=== PATIENT | female | born 1975 | race Caucasian/White ===

== ENCOUNTER 2025-06-04 08:25 | Outpatient (AMB) | payer OTHER, SELFPAY ==
--- NOTE | 2025-06-04 08:14 | A.OFFPC_ITS ---
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 She has a significant past medical history of hyperthyroidism Graves disease, constipation, joint pains, fatigue, insomnia and is currently menopausal. She denies any other previous past medical history Endo: [facility] for grave's disease. Currently managed on methimazole 5 mg daily. GI: Struggles with constipation and she followed with GI. States that she had a colonoscopy which was ?normal ?. Psych: Has been struggling with insomnia since she started with hot flashes and perimenopause. She does not sleep more than a couple hours a night and has frequent, interrupted sleep. She struggles falling asleep and staying asleep. MSK: States that her hips are very painful for her and she had x-rays which were read as normal. She states that it is because when she gets up she has feels very stiff and achy. She tells me she has had most labs drawn and ever ything comes back normal which is very frustrating for her. 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 Follow up with [facility] atm mechanic who tried her on a hormone replacement patch with a patch kept falling off. She tried taping it on but felt that this was too much. She felt a little bit better with the hormones in terms of her symptoms of menopause like hot flashes, mood changes but did not notice any real change in her weight or quality of sleep. She states that she has struggled with keeping the patch on her that it was hard to to assess full changes in her system. 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 1. Little interest or pleasure in doing things: nearly every day 2. Feeling down, depressed, or hopeless: nearly every day 3. Trouble falling or staying asleep, or sleeping too much: nearly every day 4. Feeling tired or having little energy: nearly every day 5. Poor appetite or overeating: nearly every day 6. Feeling bad about yourself - or that you are a failure or have let yourself or your family down: not at all 7. Trouble concentrating on things, such as reading the newspaper or watching television: not at all 8. Moving or speaking so slowly that other people could have noticed. Or the opposite - being so fidgety or restless that you have been moving around a lot more than usual: nearly every day 9. Thoughts that you would be better off or of hurting yourself in some way: not at all Total score: 18 Depression Screening Interpretation: Positive Depression Screening Follow-up: New Medication prescribed and Follow-up Visit Requested Depression Screening Done: Yes 45682 - PHQ-9 Billing: Yes Source: Developed by Drs. Franco Mclain, Aleja Gonzalez, Torin Roth and colleagues, with an educational alfonzo from [employer]. Thrive Questionnaire Date Thrive assessed: 06/02/25 I am a: Patient What is your living situation today?: I have a steady place to live Within the past 12 months, did the food you bought not last and you didn't have the money to get more?: Never true Within the past 12 months, did you worry whether your food would run out before you got money to buy more?: Never true Do you have trouble paying for medicines?: No Do you have trouble getting transportation to medical appointments?: No Do you have trouble paying your heating and electricity bill?: No Do you have trouble taking care of your child, family member or friend?: No Do you have trouble with day-to-day activities such as bathing, preparing meals, shopping, managing finances, etc.?: No Are you currently unemployed and looking for a job?: No Are you interested in more education?: I choose not to answer this question Please select the resources that you would like help with: None Currently or been in a relationship where the following occur: No concerns reported THRIVE Score: 0 AUDIT C Alcohol Use Questionnaire (AUDIT-C) 1. How often do you have a drink containing alcohol?: Monthly or less 2. How many drinks containing alcohol do you have on a typical day when you are drinking?: 1 or 2 3. How often do you have six or more drinks on one occasion?: Never Total Score: 1 MACKENZIE-7 AMB Questionnaire MACKENZIE-7 Date MACKENZIE - 7 assessed: 06/04/25 Feeling nervous, anxious, or on edge: 2 = More than half the days Not being able to stop or control worryin = More than half the days Worrying too much about different things: 2 = More than half the days Trouble relaxin = More than half the days Being so restless that it is hard to sit still: 2 = More than half the days Becoming easily annoyed or irritable: 2 = More than half the days Feeling afraid as if something awful might happen: 2 = More than half the days Total MACKENZIE-7 score (0-4 normal; 5-9 mild; 10-14 moderate; 15-21 severe): 14 Source: Developed by Drs. Franco Mclain, Aleja Gonzaelz, Torin Roth and colleagues, with an educational alfonzo from [employer]. MACKENZIE-7 Assessment Billing MACKENZIE-7 Assessment Tool: MACKENZIE-7 Assessment 77002 Physical exam (Primary Care) Vital Signs: Last Vital Signs Pulse 75 06/04/25 12:51 Resp 14 06/04/25 12:51 BP 112/80 06/04/25 12:51 Pulse Ox 96 06/04/25 12:51 Oxygen Delivery Method Room Air 06/04/25 12:51 BMI result Body Mass Index 29.0 Tobacco/Smoking Status: Tobacco use Status Tobacco use date assessed 06/04/25 06/04/25 08:18 Patient Tobacco Use Status Never used Tobacco 06/04/25 08:18 e-Cigarette/Vaping Use Never Used 06/04/25 08:18 PHQ-9: PHQ-9 Score PHQ-9: Total score 18 06/04/25 12:54 Depression Screening Interpretation: Positive Depression Screening Follow-up: New Medication prescribed and Follow-up Visit Requested Thrive Assessment: Date of Thrive Assessment Date Thrive assessed 06/02/25 06/04/25 08:18 Currently or been in a relationship where the following occur: No concerns reported Const Orientation/consciousness: patient oriented x3 HENMT Ears: hearing grossly normal bilaterally Neck Thyroid: Thyroid normal Lymphatic: no lymphadenopathy noted Resp Auscultation: clear to auscultation bilaterally Cardio Rate: regular rate Rhythm: regular rhythm Heart sounds: S1 normal heart sound present and S2 normal heart sound present GI Inspection: Yes normal to inspection Palpation (GI): Soft to palpation and Other GI palpation findings present (nontender, no cva tenderness) Auscultation: normoactive bowel sounds Rectal Exam - Female: deferred Skin General skin exam: no rashes or lesions noted Neuro General: patient oriented x3, gait normal and no focal motor deficits Coding Level of Care Code New Pt Level 4 (09254) Complex EM visit Add On G2211 Diagnoses Weight gain R63.5 Polyarthralgia M25.50 Fatigue R53.83 Insomnia G47.00 Additional Codes MACKENZIE-7 Assessment Billing - MACKENZIE-7 Assessment Tool: MACKENZIE-7 Assessment 22755 ([id number]) PHQ-9 - 95657 - PHQ-9 Billing: Yes ([id number]) Assessment & Plan Assessment & Plan (1) Weight gain: Code(s): R63.5 - Abnormal weight gain Category: Medical Plan: We did discuss starting Zepbound. She will let me know if she wants to try something like this We also reviewed diet and increase protein intake, reduced carbohydrate intake and I have labs. (2) Polyarthralgia: Code(s): M25.50 - Pain in unspecified joint Category: Medical Plan: Labs ordered today. We will follow up pending test results (3) Fatigue: Code(s): R53.83 - Other fatigue Category: Medical Plan: Possibly related to the insomnia (4) Insomnia: Code(s): G47.00 - Insomnia, unspecified Category: Medical Plan: I will start her on trazodone. Discussed risks and benefits and adverse effects of this medication. Plan Advised to contact her mammal control agent for HRT. She was also referred to atm mechanic Orders: Orders AGUSTIN Reflex Titer and Pattern Today G47.00 - Insomnia, unspecified, M25.50 - Pain in unspecified joint, R53.83 - Other fatigue, R63.5 - Abnormal weight gain Comprehensive [place]. Panel Fast Today G47.00 - Insomnia, unspecified, M25.50 - Pain in unspecified joint, R53.83 - Other fatigue, R63.5 - Abnormal weight gain Vitamin B12 and Folate Today G47.00 - Insomnia, unspecified, M25.50 - Pain in unspecified joint, R53.83 - Other fatigue, R63.5 - Abnormal weight gain Lipid Panel Today G47.00 - Insomnia, unspecified, M25.50 - Pain in unspecified joint, R53.83 - Other fatigue, R63.5 - Abnormal weight gain IRON PROFILE Today G47.00 - Insomnia, unspecified, M25.50 - Pain in unspecified joint, R53.83 - Other fatigue, R63.5 - Abnormal weight gain Erythrocyte Sedimentation Rate Today G47.00 - Insomnia, unspecified, M25.50 - Pain in unspecified joint, R53.83 - Other fatigue, R63.5 - Abnormal weight gain Magnesium Today G47.00 - Insomnia, unspecified, M25.50 - Pain in unspecified joint, R53.83 - Other fatigue, R63.5 - Abnormal weight gain Insulin Today G47.00 - Insomnia, unspecified, M25.50 - Pain in unspecified joint, R53.83 - Other fatigue, R63.5 - Abnormal weight gain Hemoglobin A1c Today G47.00 - Insomnia, unspecified, M25.50 - Pain in unspecified joint, R53.83 - Other fatigue, R63.5 - Abnormal weight gain Vitamin D 25-OH Total Today G47.00 - Insomnia, unspecified, M25.50 - Pain in unspecified joint, R53.83 - Other fatigue, R63.5 - Abnormal weight gain Complete Blood Count Auto Diff Today G47.00 - Insomnia, unspecified, M25.50 - Pain in unspecified joint, R53.83 - Other fatigue, R63.5 - Abnormal weight gain TSH reflex Free T4 Today G47.00 - Insomnia, unspecified, M25.50 - Pain in unspecified joint, R53.83 - Other fatigue, R63.5 - Abnormal weight gain Lyme IgG/IgM w/reflex to WB Today G47.00 - Insomnia, unspecified, M25.50 - Pain in unspecified joint, R53.83 - Other fatigue, R63.5 - Abnormal weight gain Ferritin Today G47.00 - Insomnia, unspecified, M25.50 - Pain in unspecified joint, R53.83 - Other fatigue, R63.5 - Abnormal weight gain Rheumatoid Factor Today G47.00 - Insomnia, unspecified, M25.50 - Pain in unspecified joint, R53.83 - Other fatigue, R63.5 - Abnormal weight gain Microalbumin, Random (w Creat) Today G47.00 - Insomnia, unspecified, M25.50 - Pain in unspecified joint, R53.83 - Other fatigue, R63.5 - Abnormal weight gain UA CC w/rflx Micro + Cult Today G47.00 - Insomnia, unspecified, M25.50 - Pain in unspecified joint, R53.83 - Other fatigue, R63.5 - Abnormal weight gain, Z13.220 - Encounter for screening for lipoid disorders Cortisol Random Today G47.00 - Insomnia, unspecified, M25.50 - Pain in unspecified joint, R53.83 - Other fatigue, R63.5 - Abnormal weight gain Referrals SCALE BALANCER Referral Z01.419 - Encounter for gynecological examination (general) (routine) without abnormal findings Medications: New trazodone 50 mg PO BEDTIME 30 tabs 4RF
--- OUTSIDE RECORDS SUMMARY | 2025-06-04 08:34 | XMS_ITS | Clinical Summary ---
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 4 Active methIMAzole (TAPAZOLE) 5 mg tabletIndication s:Thyrotoxicosis , unspecified without thyrotoxic crisis or storm TAKE 2 TABLETS BY MOUTH EVERY DAY 180 tablet 5 Active predniSONE (DELTASONE) 20 mg tablet Take 3 tabs for 3 days, take 2 tabs for 3 days, take 1 tab for 3 days 18 tablet 5 Active cyclobenzaprine (FLEXERIL) 10 mg tablet Take 0.5-1 tablets (5-10 mg total) by mouth 1 (one) time each day in the evening. Medication may cause drowisness. Do not operate machinery/drive while taking. 30 tablet 5 Active naproxen (NAPROSYN) 500 mg tablet Take 1 tablet (500 mg total) by mouth 2 (two) times a day if needed for mild pain (pain). 60 tablet 5 Active Active Problems Problem Noted Date Diagnosed Date Depression with anxiety 10/22/2024 Overview (10/22/2024): Last Assessment & Plan: I encouraged Arminda to continue to follow up to find a therapist by calling her insurance to see which are covered. I also encouraged her to discuss mood medications with her PCP to see if she can be treated. She agreed. PMS (premenstrual syndrome) 10/22/2024 Pain of left hip joint 03/07/2024 Overview (10/22/2024): Last Assessment & Plan: I explained that while joint pain can be exacerbated during menopausal transition, it will still require usual work up and treatment and thus she should see her PCP for this. She agreed. Weight gain 03/07/2024 Overview (10/22/2024): Last Assessment & Plan: I encouraged her to work on weight bearing exercise given that metabolism tends to decrease in menopause in part related to decreased muscle mass. This may also help with mood. Vasomotor symptoms due to menopause 07/31/2023 Overview (10/22/2024): Last Assessment & Plan: I counseled Arminda that since her vasomotor symptoms seem to be well controlled on the patch, and she no longer believes her mood symptoms to be related to her patch, it is reasonable to continue. She will try to apply it to her lower flank to see if it stays in place better. Chronic constipation 02/14/2022 Overview (10/22/2024): Last Assessment & Plan: This could very well be part of the cause of her bloating. I suggested adding a magnesium supplement, trying a stool softener OTC, and prn vegetable laxative. I encouraged her to increase water to 64 oz daily, regardless of her bloating as it will likely help in the end. I recommended referral to GI for this and her ongoing bloating to see if she has some food sensitivities. She was counseled to keep a food diary in the meantime to bring with her. Seizures (CMS/HCC V24, CMS/HCC V28) 06/26/2015 Overview (10/22/2024): Follows with neurology (Red) Last Assessment & Plan: I strongly recommended she follow up with Dr. Moon as recommended. Given her discovery of timing associated with menses, she may want to call to schedule the 48 hr EEG around the time she usually has sx to allow for best evaluation. She will do this. Can discuss possible methods of menstrual suppression once evaluation is complete if it seems related. Hyperthyroidism 02/19/2015 Encounters Date Type Department Care Team Description 03/18/2025 11:30 AM EDT - 03/18/2025 11:59 PM EDT Hospital Encounter [facility] [phone] Chronic pain of right hip Discharge Disposition: Home or Self Care 03/18/2025 11:25 AM EDT - 03/18/2025 11:59 PM EDT Hospital Encounter [facility] [address] [phone] Chronic pain of right hip; Right-sided low back pain with right-sided sciatica, unspecified chronicity Discharge Disposition: Home or Self Care 03/18/2025 10:30 AM EDT Office Visit Adult Medicine [address] [phone] Marcy Sanderson PA Right-sided low back pain with right-sided sciatica, unspecified chronicity (Primary Dx); Chronic pain of right hip 03/18/2025 Nurse Triage Adult Medicine [address] [phone] Michael Duval MD Back Pain; Hip Pain from Last 3 Months Surgical History Surgery Date Site/Laterality Comments HAND SURGERY PROCEDURE: HISTORICAL HAND SURGERY Medical History Medical History Date Comments PMS (premenstrual syndrome) DX:P MS (premenstrual syndrome) Depression with anxiety DX:Depre ssion with anxiety Hyperthyroidism 02/19/2015 DX:Hyperthyroidi sm Seizure disorder (CMS/HCC V24, CMS/HCC V28) 06/26 DX:Seizure disorder (HCC) Family History Medical History Relation Name Comments Other: Other Father Brain cancer ag e 46yo Other: other cancer Maternal Grandfather Colon cancer Maternal Grandmother Depression Mother Brain cancer Paternal Grandmother Depression Sister Breast cancer Neg Hx Ovarian cancer Neg Hx Pancreatic cancer Neg Hx Prostate cancer Neg Hx Uterine cancer Neg Hx Relation Name Status Comments Father Maternal Grandfather Maternal Grandmother Alive Mother Alive Paternal Grandfather Paternal Grandmother Sister Alive Social History Tobacco Use Types Packs/Day Years Used Date Smoking Tobacco: Former Smokeless Tobacco: Never Tobacco Cessation:Counseling Given: Not Answered Alcohol Use Standard Drinks/Week Comments Yes 0 (1 standard drink = 0.6 oz pur e alcohol) Comments No Sex and Gender Information Value Date Recorded Sex Assigned at Not on file Legal Sex Female 9:38 AM EDT Gender Identity Not on file Sexual Orientation Not on file Obstetrics History Last Filed Vital Signs Vital Sign Reading Time Taken Comments Blood Pressure 137/82 03/18/2025 10:48 AM EDT Pulse 76 03/18/2025 10:48 AM EDT Temperature 36.1 C (96.9 F) 03/18/2025 10:48 AM EDT Respiratory Rate 14 03/18/2025 10:48 AM EDT Oxygen Saturation 96% 03/18/2025 10:48 AM EDT Inhaled Oxygen Concentration - - Weight 79.8 kg (176 lb) 03/18/2025 10:48 AM EDT Height 167.6 cm (5' 6 ) 03/18/2025 10:48 AM EDT Body Mass Index 28.41 03/18/2025 10:48 AM EDT Plan of Treatment Upcoming Encounters Date Type Department Care Team (Late st Contact Info) Description 09/30/2025 9:00 AM EST Office Visit Adult Medicine [address] [phone] Michael Duval MD [address] [place] [phone] Health Maintenance Due Date Last Done Comments Breast Cancer Screening 1975 DTaP,Tdap,and Td Vaccines (1 - Tdap) 1994 Hepatitis B Vaccines (1 of 3 - 19+ 3-dose series) 1994 Social Influencers of Health Screening 05/06/2022 Cervical Cancer Screening: HPV 11/16/2022 11/16/2017 COVID-19 Vaccine (1 - 2023-2 5 season) 2024 Depression Screening 11/06/2024 03/07/2024 Influenza Vaccine (#1) 2025 Colorectal Cancer Screening: Colonoscopy 06/27/2028 06/27/2023 HIV Screening Completed 12/29/2017 Hepatitis C Screening Completed 08/13/2024 HIB Vaccines Aged Out No longer eligi ble based on patient's age to complete this topic HPV Vaccines Aged Out No longer eligi ble based on patient's age to complete this topic Hepatitis A Vaccines Aged Out No long er eligible based on patient's age to complete this topic IPV Vaccines Aged Out No longer eligi ble based on patient's age to complete this topic MMR Vaccines Aged Out No longer eligi ble based on patient's age to complete this topic Meningococcal ACWY Vaccine Aged Out N o longer eligible based on patient's age to complete this topic Meningococcal B Vaccine Aged Out No l onger eligible based on patient's age to complete this topic Pneumococcal Vaccine: Pediat rics (0 to 5 Years) and At-Risk Patients (6 to 49 Years) Aged Out No longer eligi ble based on patient's age to complete this topic RSV Immunization Patients Un bucky 20 months Aged Out No longer eligible b ased on patient's age to complete this topic Varicella Vaccines Aged Out No longer eligible based on patient's age to complete this topic Procedures Procedure Name Priority Date/Time Associated Diagnosis Comments AGUSTIN IFA WITH TITER AND PATTERN Routine 03/18/2025 12:15 PM EDT Chronic pain of right hip Right-sided low back pain with right-sided sciatica, unspecified chronicity BORRELIA BURGDORFERI ANTIBODY Routine 03/18/2025 12:15 PM EDT Chronic pain of right hip Right-sided low back pain with right-sided sciatica, unspecified chronicity URIC ACID Routine 03/18/2025 12:15 PM EDT Chronic pain of right hip Right-sided low back pain with right-sided sciatica, unspecified chronicity RHEUMATOID FACTOR Routine 03/18/2025 12: 15 PM EDT Chronic pain of right hip Right-sided low back pain with right-sided sciatica, unspecified chronicity XR HIP 2-3 VIEWS RIGHT Routine 03/18/2025 11:48 AM EDT Chronic pain of right hip XR LUMBAR SPINE 4+ VIEWS Routine 03/18/2025 11:47 AM EDT Chronic pain of right hip Right-sided low back pain with right-sided sciatica, unspecified chronicity HEPATITIS C SCREENING Routine 08/13/2024 DEPRESSION SCREENING Routine 03/07/2024 EXTERNAL COLONOSCOPY REPORT Routine 06/27/2023 4:05 PM EDT HM HIV SCREENING Routine 12/29/2017 HPV Routine 11/16/2017 from Last 3 Months or Most Recently Relevant to Health Maintenance Results * AGUSTIN IFA with titer and pattern (03/18/2025 12:15 PM EDT) AGUSTIN Negative Negative 03/19/2025 11:22 AM EDT [facility] Blood Venous blood specimen / Unknown Venipuncture / Unknown 03/18/2025 12:15 PM EDT 03/18/2025 12:16 PM EDT us Marcy [facility] LAB BLOOD ORDERABLES Final Re sult [facility] [address] [place] [address], * Borrelia burgdorferi antibody (03/18/2025 12:15 PM EDT) Lyme Ab Negative Negative LAB CHEMISTRY METHOD 03/19/2025 11:45 AM EDT [facility] Comment: No laboratory evidence of infection with B. burgdorferi (Lyme disease). Negative results may occur in patients recently infected (<=14 days) with B. burgdorferi. If recent infection is suspected, repeat testing on a new sample collected in 7- 14 days is recommended. Blood Venous blood specimen / Unknown Venipuncture / Unknown 03/18/2025 12:15 PM EDT 03/18/2025 12:16 PM EDT us Marcy [facility] LAB BLOOD ORDERABLES Final Re sult Performing Organization Address City/[facility]/ZIP Co de Phone Number [facility] [address] [place] [address], [place] [phone] * Rheumatoid factor (03/18/2025 12:15 PM EDT) Rheumatoid Factor <10.0 <15.0 I Unit/mL LAB CHEMISTRY METHOD 03/18/2025 4:24 PM EDT [facility] Blood Venous blood specimen / Unknown Venipuncture / Unknown 03/18/2025 12:15 PM EDT 03/18/2025 12:16 PM EDT us Marcy [facility] LAB BLOOD ORDERABLES Final Re sult Performing Organization Address [facility]/ZIP Co de Phone Number [facility] [address] [place] [address], [place] [phone] * Uric acid (03/18/2025 12:15 PM EDT) Uric Acid 3.7 3.1 - 7.8 mg/dL LAB CHEMISTRY METHOD 03/18/2025 4:24 PM EDT [facility] Blood Venous blood specimen / Unknown Venipuncture / Unknown 03/18/2025 12:15 PM EDT 03/18/2025 12:16 PM EDT us Marcy [facility] LAB BLOOD ORDERABLES Final Re sult Performing Organization Address City/[facility]/ZIP Co de Phone Number [facility] [address] [place] [address], [place] [phone] * XR Hip 2-3 Views Right (03/18/2025 11:48 AM EDT) Anatomical Region Laterality Modality Lower Extremities, Hip Right Radiograp hic Imaging 03/18/2025 2:44 PM EDT Impressions 03/18/2025 2:45 PM EDT Unremarkable exam. -------- FINAL REPORT -------- Dictated By: Chelo Quintanilla Dictated Date: 03/18/2025 14:44 ET Assigned Physician: Chelo Quintanilla Reviewed and Electronically Signed By: Chelo Quintanilla Signed Date: 03/18/2025 14:45 ET Workstation ID: [id number] Transcribed By: Self Edit Transcribed Date: 03/18/2025 14:44 ET Narrative 03/18/2025 2:45 PM EDT XR HIP 2-3 VIEWS RIGHT Reason: R hip pain Comparison: None FINDINGS: Sacroiliac joint and symphysis pubis are intact. Normal and symmetric appearance of bilateral hip joints. Right femoral head is well-seated within respective acetabulum. Procedure Note Cehlo Quintanilla MD - 03/18/2025 XR HIP 2-3 VIEWS RIGHT Reason: R hip pain Comparison: None FINDINGS: Sacroiliac joint and symphysis pubis are intact. Normal and symmetricappearance of bilateral hip joints. Right femoral head is well-seatedwithin respective acetabulum. IMPRESSION: Unremarkable exam. -------- FINAL REPORT -------- Dictated By: Chelo Quintanilla Dictated Date: 03/18/2025 14:44 ET Assigned Physician: Chelo Quintanilla Reviewed and Electronically Signed By: Chelo Quintanilla Signed Date: 03/18/2025 14:45 ET Workstation ID: [id number] Transcribed By: Self Edit Transcribed Date: 03/18/2025 14:44 ET us Marcy [facility] IMG XR PROCEDURES Final Resul t * XR Lumbar Spine 4+ Views (03/18/2025 11:47 AM EDT) Anatomical Region Laterality Modality Spine, L-spine Radiographic Maral ging 03/18/2025 2:42 PM EDT Impressions 03/18/2025 2:43 PM EDT No significant degenerative changes. -------- FINAL REPORT -------- Dictated By: Chelo Quintanilla Dictated Date: 03/18/2025 14:42 ET Assigned Physician: Chelo Quintanilla Reviewed and Electronically Signed By: Chelo Quintanilla Signed Date: 03/18/2025 14:43 ET Workstation ID: [id number] Transcribed By: Self Edit Transcribed Date: 03/18/2025 14:42 ET Narrative 03/18/2025 2:43 PM EDT XR LUMBAR SPINE 4+ VIEWS Reason: right low back pain Comparison: None FINDINGS: Minimal levocurvature of lumbar spine. No subluxation. No compression fracture. Tiny marginal osteophyte in the superior endplate of L4 vertebral body. No significant facet arthropathy. Sacroiliac joints are intact. Procedure Note Chelo Quintanilla MD - 03/18/2025 XR LUMBAR SPINE 4+ VIEWS Reason: right low back pain Comparison: None FINDINGS: Minimal levocurvature of lumbar spine. No subluxation. No compressionfracture. Tiny marginal osteophyte in the superior endplate of [id number] body. No significant facet arthropathy. Sacroiliac joints areintact. IMPRESSION: No significant degenerative changes. -------- FINAL REPORT -------- Dictated By: Chelo Quintanilla Dictated Date: 03/18/2025 14:42 ET Assigned Physician: Chelo Quintanilla Reviewed and Electronically Signed By: Chelo Quintanilla Signed Date: 03/18/2025 14:43 ET Workstation ID: [id number] Transcribed By: Self Edit Transcribed Date: 03/18/2025 14:42 ET Marcy [facility] IMG XR PROCEDURES Final Resul t * Hepatitis C Screening (08/13/2024) Pathologist [facility] Hepatitis C Screening abstracted Historical Provider HEALTH MAINTENANCE Final Result * Depression Screening (03/07/2024) Depression Screening abstracted Historical Provider HEALTH MAINTENANCE Final Result * External Colonoscopy Report (06/27/2023 4:05 PM EDT) Anatomical Region Laterality Modality Endoscopy Historical Provider GI~PROCEDURE ORDERABLES F inal Result * HIV Screening (12/29/2017) HIV Screening abstracted Historical Provider HEALTH MAINTENANCE Final Result * Cervical Cancer Screening: HPV (11/16/2017) Pathologist [facility] Cervical Cancer Screening: HPV negative, abstracted Historical Provider HEALTH MAINTENANCE Final Result from Last 3 Months or Most Recently Relevant to Health Maintenance Insurance [facility] [employer] Care Teams Sheet Rock Taper Helper Relationship Specialty Start Date End Date Michael Duval MD [address] [place] [address] [phone] PCP - General Internal Medicine 05/21/20
[2025-06-04 12:51] VITALS: BP 112/80; PULSE 75; RESP 14; O2SAT 96; BMI 29.0
== END 2025-06-04 09:19 | disposition home or self-care (01) ==
LOC: HO.HMCFM 08:25
PROVIDERS: PCP Physician Assistant; Visit Provider Physician Assistant
DX: R63.5 Abnormal weight gain (principal); M25.50 Pain in unspecified joint; R53.83 Other fatigue; G47.00 Insomnia, unspecified

== ENCOUNTER → 2025-06-04 08:25 | Outpatient (BNVA) | payer OTHER, SELFPAY | PROVIDERS: PCP Physician Assistant; Visit Provider Physician Assistant | DX: E05.00 Thyrotoxicosis with diffuse goiter without thyrotoxic crisis or storm (principal); G47.00 Insomnia, unspecified; R63.5 Abnormal weight gain; M25.50 Pain in unspecified joint; R53.83 Other fatigue; Z78.0 Asymptomatic menopausal state | CPT/HCPCS: 36415; 80053; 80061; 81003; 82306; 82533; 82570; 82607; 82728; 82746; 83036; 83525; 83540; 83735; 84439; 84443; 85025; 85652; 86038; 86431; 86618; 96127; 99202 ==

== ENCOUNTER 2025-06-04 09:30 | Outpatient (REF) | payer OTHER, SELFPAY ==
[2025-06-04 11:12] LABS: MANUAL DIFF FLAG NO
[2025-06-04 11:38] LABS: Hematocrit 38.5 % (37.0-47.0); Hemoglobin 12.9 g/dl (12.0-16.0); Imm Gran Abs Auto 0.03 X10*3/uL (0.00-0.03); Imm Gran Pct Auto 0.5 % (0.0-0.4); Lymphocytes Absolute Auto 1.7 X10*3/uL (1.2-4.9); Mean Corpuscular HGB Conc 33.5 g/dl (31.0-35.0); Mean Corpuscular Hemoglobin 28.9 pg (27.0-33.0); Mean Corpuscular Volume 86.3 fL (80.0-98.0); NRBC Abs Auto 0.000 X10*3/uL (0.0-0.012); NRBC Pct Auto 0.0 /100WBC (0.0-0.2); Platelet Count 312 X10*3/uL (160-400); Red Blood Count 4.46 X10*6/uL (4.20-5.50); White Blood Count 6.0 X10*3/uL (4.8-10.8)
[2025-06-04 12:14] LABS: Alanine Aminotransferase 35 U/L (0-31); Albumin Level 4.2 g/dL (3.5-5.0); Alkaline Phosphatase 90 U/L (39-117); Anion Gap 10 (12-20); Aspartate Amino Transferase 24 U/L (5-31); Blood Urea Nitrogen 19 mg/dL (9-16); Calcium 9.0 mg/dL (8.4-10.2); Carbon Dioxide 29 mmol/L (22-29); Chloride 107 mmol/L (96-108); Cholesterol 174 mg/dL (<200); Estimated Glomerular Filt Rate > 60; HDL Cholesterol 59 mg/dL (>40); Iron 49 mcg/dL (30-160); Magnesium 2.0 mg/dL (1.6-2.6); Percent Iron Saturation 17 % (15-50); Potassium 4.0 mmol/L (3.3-5.1); Sodium 142 mmol/L (135-145); Total Iron Binding Capacity 287 mcg/dL (228-428); Total Protein 7.0 g/dL (6.5-8.0); Triglycerides 61 mg/dL (<150); Unsaturated Iron Binding 238 ug/dL
[2025-06-04 12:22] LABS: Folate 14.4 ng/mL (> or = 4.0); Vitamin B12 401 pg/mL (200-900)
[2025-06-04 12:44] LABS: Ferritin 49 ng/mL (10-250)
[2025-06-04 12:57] LABS: Hemoglobin A1C 103.7095 umol/L; Total Hemoglobin (HGBA1C) 3414.7995 umol/L
[2025-06-04 13:58] LABS: Free T4 (Free Thyroxine) 1.23 ng/dL (0.71-1.85)
[2025-06-04 14:33] LABS: Appearance Urine Turbid; Glucose Urine UA Negative (Negative); PH 8.0 (5.0-9.0); Specific Gravity - Urine 1.020 (1.005-1.025)
[2025-06-05 09:48] LABS: Lyme Abs Screen <0.90 index
[2025-06-06 12:28] LABS: Anti Nuclear Antibody Screen NEGATIVE (NEGATIVE)
== END 2025-06-04 09:31 | disposition home or self-care (01) ==
LOC: HO.WFDLDS 09:30
PROVIDERS: Visit Provider Physician Assistant
DX: Z13.89 Encounter for screening for other disorder (principal)
CPT/HCPCS: 36415; 80053; 80061; 81003; 82043; 82306; 82533; 82570; 82607; 82728; 82746; 83036; 83525; 83540; 83735; 84439; 84443; 85025; 85652; 86038; 86431; 86617; 86618

== ENCOUNTER 2025-06-18 09:30 | Outpatient (AMB) | payer OTHER, SELFPAY ==
--- NOTE | 2025-06-18 09:45 | A.OFFVIS_ITS ---
Vital Signs 06/18/25 09:46 Height 5 ft 5 in Weight 175 lb BMI 29.1 BP 112/70 Blood Pressure Location Lt brachial Position Sitting Intake Visit Reasons: labs and meds Allergies No Known Allergies Allergy (Verified 06/04/25 08:14) Medication List - Last Reconciled 06/18/25 by Keyanna Valencia PA-C methimazole 5 mg PO DAILY trazodone 50 mg PO BEDTIME HPI HPI labs and meds: Details: Pt is a 49 year old female who presents today for a follow up. She has a significant past medical history of hyperthyroidism Graves disease, constipation, joint pains, fatigue, insomnia and is currently menopausal. Endo: [facility] for grave's disease. Currently managed on methimazole 5 mg daily. She has been on methimazole for over 20 years. She is interested in a 2nd opinion. Most recent TSH was less than 0.01 GI: Struggles with constipation and she followed with GI. States that she had a colonoscopy which was ?normal ?. Psych: Has been struggling with insomnia since she started with hot flashes and perimenopause. She does not sleep more than a couple hours a night and has frequent, interrupted sleep. She does feel that the trazodone is better and helping her. She is waiting to see Gynecology to discuss possible HRT. 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 Follow up with [facility] obstetrician gynecologist who tried her on a hormone replacement patch with a patch kept falling off. She tried taping it on but felt that this was too much. She felt a little bit better with the hormones in terms of her symptoms of menopause like hot flashes, mood changes but did not notice any real change in her weight or quality of sleep. She states that she has struggled with keeping the patch on her that it was hard to to assess full changes in her system. General: Very frustrated with her weight. She is interested in a 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 Current occupational exposures/hazards: No Cognitive needs: No Hearing needs: No Vision needs: No Physical Exam Vital Signs: Last Vital Signs BP 112/70 06/18/25 09:46 BMI result Body Mass Index 29.1 Const Orientation/consciousness: patient oriented x3 HEENT Ears: hearing grossly normal bilaterally Neck Thyroid: diffusely enlarged Lymphatic: no lymphadenopathy noted Resp Auscultation: clear to auscultation bilaterally Cardio Rate: regular rate Rhythm: regular rhythm Heart sounds: S1 normal heart sound present and S2 normal heart sound present GI Inspection: Yes normal to inspection Palpation (GI): Soft to palpation and Other GI palpation findings present (nontender, no cva tenderness) Auscultation: normoactive bowel sounds Rectal Exam - Female: deferred Skin General skin exam: no rashes or lesions noted Neuro General: patient oriented x3, gait normal and no focal motor deficits Assessment & Plan Assessment & Plan (1) Graves' disease: Code(s): E05.00 - Thyrotoxicosis with diffuse goiter without thyrotoxic crisis or storm Category: Medical Plan: Referral to endocrinology Recently increased dosage of methimazole. Following temporarily with [facility]. (2) Thyroid nodule: Code(s): E04.1 - Nontoxic single thyroid nodule Category: Medical Plan: As above (3) Elevated LFTs: Code(s): R79.89 - Other specified abnormal findings of blood chemistry Category: Medical Plan: We discussed possibly related to the hyperthyroidism. We will plan to rechecked TSH and LFTs. (4) Weight gain: Code(s): R63.5 - Abnormal weight gain Category: Medical Plan: I will start her on Zepbound. Discussed risks and benefits and adverse effects of this medication. Orders: Orders TSH reflex Free T4 Today E04.1 - Nontoxic single thyroid nodule, E05.00 - Thyrotoxicosis with diffuse goiter without thyrotoxic crisis or storm, R79.89 - Other specified abnormal findings of blood chemistry Liver Panel Today E04.1 - Nontoxic single thyroid nodule, E05.00 - Thyrotoxicosis with diffuse goiter without thyrotoxic crisis or storm, R79.89 - Other specified abnormal findings of blood chemistry US abdomen complete Today R79.89 - Other specified abnormal findings of blood chemistry Referrals Endocrinology Referral E04.1 - Nontoxic single thyroid nodule, E05.00 - Thyrotoxicosis with diffuse goiter without thyrotoxic crisis or storm Medications: New tirzepatide (weight loss) (Zepbound) 5 mg (0.5 mL) subcut QWEEK 2 mL 2RF Coding Level of Care Code Est Pt Level 4 (26846) Complex EM visit Add On G2211 Diagnoses Graves' disease E05.00 Thyroid nodule E04.1 Elevated LFTs R79.89 Weight gain R63.5
[2025-06-18 09:46] VITALS: BP 112/70; BMI 29.1
--- OUTSIDE RECORDS SUMMARY | 2025-06-18 09:59 | XMS_ITS | Clinical Summary ---
Author Organization Patient Business Ser [facility] Address [address] [place] [address] Care Team Providers Care Fire Lieutenant Name Role Phone Michael Duval MD Primary Care Provider [phone] Allergies No known active allergies Medications linaCLOtide [...] 03/18/2025 11:59 PM EDT Hospital Encounter [facility] [address] [address] Chronic pain of right hip Discharge Disposition: Home or Self Care 03/18/2025 11:25 AM EDT - 03/18/2025 11:59 PM EDT Hospital Encounter [facility] [address] [phone] Chronic pain of right hip; Right-sided low back pain with right-sided sciatica, unspecified chronicity Discharge Disposition: Home or Self Care 03/18/2025 10:30 AM EDT Office Visit Adult Medicine [address] [phone] Marcy Sanderson PA Right-sided low back pain with right-sided sciatica, unspecified chronicity (Primary Dx); Chronic pain of right hip 03/18/2025 Nurse Triage Adult Medicine [address] [phone] Michael Duval MD Back Pain; Hip Pain [...] 9:00 AM EST Office Visit Adult Medicine [address] [phone] Michael Duval MD [address] [place] [phone] Health Maintenance Due Date Last Done Comments [...] AGUSTIN Negative Negative 03/19/2025 11:[address] [facility] Blood Venous blood specimen / Unknown Venipuncture / Unknown 03/18/2025 12:15 PM EDT 03/18/2025 12:16 PM EDT us Marcy WU LAB BLOOD ORDERABLES Final Re sult [facility] [address] [place] [address], * Borrelia burgdorferi antibody (03/18/2025 12:15 PM EDT) Lyme Ab Negative Negative LAB CHEMISTRY METHOD 03/19/2025 11:[address] [facility] Comment: No laboratory evidence of [...] ORDERABLES Final Re sult Performing Organization Address City/[facility]/ZIP Co de Phone Number [facility] [address] [place] [address], [place] [phone] * Rheumatoid factor (03/18/2025 12:15 PM EDT) Rheumatoid Factor <10.0 <15.0 I Unit/mL LAB CHEMISTRY METHOD 03/18/2025 4:[address] [facility] Blood Venous blood specimen / Unknown Venipuncture / Unknown 03/18/2025 12:15 PM EDT 03/18/2025 12:16 PM EDT us Marcy WU LAB BLOOD ORDERABLES Final Re sult Performing Organization Address [facility]/ZIP Co de Phone Number [facility] [address] [place] [address], [place] [phone] * Uric acid (03/18/2025 12:15 PM EDT) Uric Acid 3.7 3.1 - 7.8 mg/dL LAB CHEMISTRY METHOD 03/18/2025 4:[address] [facility] Blood Venous blood specimen / Unknown Venipuncture / Unknown 03/18/2025 12:15 PM EDT 03/18/2025 12:16 PM EDT us Marcy WU LAB BLOOD ORDERABLES Final Re sult Performing Organization Address City/[facility]/ZIP Co de Phone Number [facility] [address] [place] [address], [place] [phone] * XR Hip 2-3 Views Right (03/18/2025 11:48 AM EDT) Anatomical Region Laterality Modality Lower Extremities, Hip Right Radiograp hic Imaging 03/18/2025 2:44 PM EDT Impressions 03/18/2025 2:45 PM EDT Unremarkable exam. -------- FINAL REPORT -------- Dictated By: Cheol Quintanilla Dictated Date: 03/18/2025 14:44 ET Assigned Physician: Chelo Quintanilla Reviewed and Electronically Signed By: Chelo Quintanilla Signed Date: 03/18/2025 14:45 ET Workstation ID: [id number] Transcribed By: Self Edit Transcribed Date: 03/18/2025 14:44 ET Narrative 03/18/2025 2:45 PM EDT XR HIP 2-3 VIEWS RIGHT Reason: R hip pain Comparison: None FINDINGS: Sacroiliac joint and symphysis pubis are intact. Normal and symmetric appearance of bilateral hip joints. Right femoral head is well-seated within respective acetabulum. Procedure Note Chelo Quintanilla MD - 03/18/2025 XR HIP 2-3 [...] Signed Date: 03/18/2025 14:45 ET Workstation ID: [id number] Transcribed By: Self Edit Transcribed Date: 03/18/2025 [...] Signed Date: 03/18/2025 14:43 ET Workstation ID: [id number] Transcribed By: Self Edit Transcribed Date: 03/18/2025 [...] marginal osteophyte in the superior endplate of [id number] body. No significant facet arthropathy. Sacroiliac joints areintact. IMPRESSION: No significant degenerative changes. -------- FINAL REPORT -------- Dictated By: Chelo Quintanilla Dictated Date: 03/18/2025 14:42 ET Assigned Physician: Chelo Quintanilla Reviewed and Electronically Signed By: Chelo Quintanilla Signed Date: 03/18/2025 14:43 ET Workstation ID: [id number] Transcribed By: Self Edit Transcribed Date: 03/18/2025 14:42 ET Marcy WU IMG XR PROCEDURES Final Resul t * Hepatitis C Screening (08/13/2024) Pathologist [facility] Hepatitis C Screening abstracted Historical Provider HEALTH MAINTENANCE Final Result * Depression Screening (03/07/2024) Depression Screening abstracted Historical Provider HEALTH MAINTENANCE Final Result * External Colonoscopy Report (06/27/2023 4:05 PM EDT) Anatomical Region Laterality Modality Endoscopy Historical Provider GI~PROCEDURE ORDERABLES F inal Result * HIV Screening (12/29/2017) HIV Screening abstracted Historical Provider HEALTH MAINTENANCE Final Result * Cervical Cancer Screening: HPV (11/16/2017) Pathologist [facility] Cervical Cancer Screening: HPV negative, abstracted Historical Provider HEALTH MAINTENANCE Final Result from Last 3 Months or Most Recently Relevant to Health Maintenance Insurance [facility] [place] [address] Care Teams Fire Lieutenant Relationship Specialty Start Date End Date Michael Duval MD PCP - General Internal Medicine 05/21/20
== END 2025-06-18 10:18 | disposition home or self-care (01) ==
LOC: HO.HMCFM 09:31
PROVIDERS: PCP Physician Assistant; Visit Provider Physician Assistant
DX: E05.00 Thyrotoxicosis with diffuse goiter without thyrotoxic crisis or storm (principal); E04.1 Nontoxic single thyroid nodule; R79.89 Other specified abnormal findings of blood chemistry; R63.5 Abnormal weight gain

== ENCOUNTER → 2025-06-18 09:30 | Outpatient (BNVA) | payer OTHER, SELFPAY | PROVIDERS: PCP Physician Assistant; Visit Provider Physician Assistant | DX: N95.1 Menopausal and female climacteric states (principal); E05.00 Thyrotoxicosis with diffuse goiter without thyrotoxic crisis or storm; K59.00 Constipation, unspecified; G47.00 Insomnia, unspecified; R23.2 Flushing; E04.1 Nontoxic single thyroid nodule; R79.89 Other specified abnormal findings of blood chemistry; R63.5 Abnormal weight gain | CPT/HCPCS: 99212 ==

== ENCOUNTER 2025-07-14 14:04 | Outpatient (REF) | payer OTHER, SELFPAY ==
[2025-07-14 16:15] LABS: Alanine Aminotransferase 20 U/L (0-31); Albumin Level 4.6 g/dL (3.5-5.0); Alkaline Phosphatase 100 U/L (39-117); Aspartate Amino Transferase 26 U/L (5-31); Total Protein 7.6 g/dL (6.5-8.0)
--- OUTSIDE RECORDS SUMMARY | 2025-07-14 16:26 | XMS_ITS | Clinical Summary ---
Author Organization Patient Business Ser [facility] Address [address] [place] [address] Care Team Providers Care Senior Marketing Coordinator Name Role Phone Michael Duval MD Primary Care Provider [phone] Allergies No known active allergies Medications linaCLOtide [...] complete if it seems related. Hyperthyroidism 02/19/2015 Surgical History Surgery Date Site/Laterality Comments HAND [...] 9:00 AM EST Office Visit Adult Medicine [facility] [address] [place] [address] Michael Duval MD [address] [place] [phone] Health Maintenance Due Date Last Done Comments Breast Cancer Screening 1975 DTaP,Tdap,and Td Vaccines (1 - Tdap) 1994 Hepatitis B Vaccines (1 of 3 - 19+ 3-dose series) 1994 [employer] Screening 05/06/2022 Cervical Cancer Screening: HPV 11/16/2022 11/16/2017 Depression Screening 11/06/2024 03/07/2024 COVID-19 Vaccine ( - 2023-2 5 season) 2025 Influenza Vaccine (#1) 2025 Colorectal Cancer Screening: [...] Procedure Name Priority Date/Time Associated Diagnosis Comments HEPATITIS C SCREENING Routine 08/13/2024 DEPRESSION SCREENING Routine 03/07/2024 EXTERNAL COLONOSCOPY REPORT Routine 06/27/2023 4:05 PM EDT HIV SCREENING Routine 12/29/2017 HPV Routine 11/16/2017 from Last 3 Months or Most Recently Relevant to Health Maintenance Results * Hepatitis C Screening (08/13/2024) Hepatitis C Screening abstracted [facility] Provider HEALTH MAINTENANCE Final Result * Depression Screening (03/07/2024) Depression Screening abstracted [facility] Provider HEALTH MAINTENANCE Final Result * External Colonoscopy Report (06/27/2023 4:05 PM EDT) Anatomical Region Laterality Modality Endoscopy [facility] Provider GI~PROCEDURE ORDERABLES F inal Result * HIV Screening (12/29/2017) Pathologist [facility] HIV Screening abstracted [facility] Provider HEALTH MAINTENANCE Final Result * Cervical Cancer Screening: HPV (11/16/2017) Pathologist [facility] Cervical Cancer Screening: HPV negative, abstracted [facility] Provider HEALTH MAINTENANCE Final Result from Last 3 Months or Most Recently Relevant to Health Maintenance Insurance [facility] [phone] Care Teams Senior Marketing Coordinator Relationship Specialty Start Date End Date Michael Duval MD PCP - General Internal Medicine 05/21/20
[2025-07-14 16:55] LABS: Free T4 (Free Thyroxine) 1.51 ng/dL (0.71-1.85)
== END 2025-07-14 14:05 | disposition home or self-care (01) ==
LOC: HO.WFDLDS 14:04
PROVIDERS: Visit Provider Physician Assistant
DX: E04.1 Nontoxic single thyroid nodule (principal); E05.00 Thyrotoxicosis with diffuse goiter without thyrotoxic crisis or storm; R79.89 Other specified abnormal findings of blood chemistry
CPT/HCPCS: 36415; 80076; 84439; 84443

== ENCOUNTER 2025-07-29 10:25 | Outpatient (REF) | payer OTHER, SELFPAY ==
--- OUTSIDE RECORDS SUMMARY | 2025-07-29 12:44 | XMS_ITS | Clinical Summary ---
Author Organization Patient Business Ser [facility] Address [address] [place] [address] Care Team Providers Care Food Science Technician Name Role Phone Michael Duval MD Primary Care Provider [phone] Allergies No known active allergies Medications linaCLOtide [...] 9:00 AM EST Office Visit Adult Medicine [facility] [address] [place] [address] Michael Duval MD [address] [place] [phone] Health Maintenance Due Date Last Done Comments [...] C Screening (08/13/2024) Hepatitis C Screening abstracted [facility] Provider HEALTH MAINTENANCE Final Result * Depression Screening (03/07/2024) Depression Screening abstracted [facility] Provider HEALTH MAINTENANCE Final Result * External Colonoscopy Report (06/27/2023 4:05 PM EDT) Anatomical Region Laterality Modality Endoscopy [facility] Provider GI~PROCEDURE ORDERABLES F inal Result * HIV Screening (12/29/2017) Pathologist [facility] HIV Screening abstracted [facility] Provider HEALTH MAINTENANCE Final Result * Cervical Cancer Screening: HPV (11/16/2017) Pathologist [facility] Cervical Cancer Screening: HPV negative, abstracted [facility] Provider HEALTH MAINTENANCE Final Result from Last 3 Months or Most Recently Relevant to Health Maintenance Insurance [facility] [employer] Care Teams Food Science Technician Relationship Specialty Start Date End Date Michael Duval MD PCP - General Internal Medicine 05/21/20
[2025-07-29 14:36] LABS: MANUAL DIFF FLAG NO
[2025-07-29 14:40] LABS: Hematocrit 42.3 % (37.0-47.0); Hemoglobin 13.9 g/dl (12.0-16.0); Imm Gran Abs Auto 0.01 X10*3/uL (0.00-0.03); Imm Gran Pct Auto 0.2 % (0.0-0.4); Lymphocytes Absolute Auto 1.9 X10*3/uL (1.2-4.9); Mean Corpuscular HGB Conc 32.9 g/dl (31.0-35.0); Mean Corpuscular Hemoglobin 28.3 pg (27.0-33.0); Mean Corpuscular Volume 86.2 fL (80.0-98.0); NRBC Abs Auto 0.000 X10*3/uL (0.0-0.012); NRBC Pct Auto 0.0 /100WBC (0.0-0.2); Platelet Count 355 X10*3/uL (160-400); Red Blood Count 4.91 X10*6/uL (4.20-5.50); White Blood Count 6.0 X10*3/uL (4.8-10.8)
[2025-07-29 14:57] LABS: Alanine Aminotransferase 19 U/L (0-31); Albumin Level 4.4 g/dL (3.5-5.0); Alkaline Phosphatase 90 U/L (39-117); Anion Gap 12 (12-20); Aspartate Amino Transferase 25 U/L (5-31); Blood Urea Nitrogen 17 mg/dL (9-16); Calcium 9.5 mg/dL (8.4-10.2); Carbon Dioxide 29 mmol/L (22-29); Chloride 105 mmol/L (96-108); Estimated Glomerular Filt Rate > 60; Potassium 4.0 mmol/L (3.3-5.1); Sodium 142 mmol/L (135-145); Total Protein 7.3 g/dL (6.5-8.0)
[2025-07-29 16:30] LABS: Free T4 (Free Thyroxine) 1.08 ng/dL (0.71-1.85)
== END 2025-07-29 10:26 | disposition home or self-care (01) ==
LOC: HO.WFDLDS 10:25
PROVIDERS: Visit Provider Physician Assistant
DX: E05.00 Thyrotoxicosis with diffuse goiter without thyrotoxic crisis or storm (principal); R79.89 Other specified abnormal findings of blood chemistry; R53.83 Other fatigue
CPT/HCPCS: 36415; 80053; 84439; 84443; 85025

== ENCOUNTER 2025-08-07 10:37 | Outpatient (REF) | payer OTHER, SELFPAY ==
--- NOTE | ~2025-08-07 | US_ITS ---
CLINICAL HISTORY: R79.89 - Other specified abnormal findings of blood chemistry US abdomen complete Comparison: None provided Findings: The visualized pancreas is normal. The aorta and inferior vena cava are normal caliber. The appearance of the liver suggests fatty infiltration. There is no intrahepatic bile duct dilatation. The common duct is 5.7 mm in diameter. The gallbladder is normal. There is no sonographic Horn sign. The main portal vein is antegrade. The right kidney is 10.0 cm in length. The left kidney is 10.3 cm in length. The spleen is normal. No ascites. IMPRESSION: 1. Hepatic steatosis. This document has been electronically signed by: Zechariah Coronado MD on 08/08/2025 09:28:27
--- OUTSIDE RECORDS SUMMARY | 2025-08-07 12:27 | XMS_ITS | Clinical Summary ---
Author Organization Patient Business Ser [facility] Address [address] [place] [address] Care Team Providers Care Braddisher Name Role Phone Michael Duval MD Primary Care Provider [phone] Allergies No known active allergies Medications linaCLOtide [...] 9:00 AM EST Office Visit Adult Medicine [facility] [address] [place] [address] Michael Duval MD [address] [place] [phone] Health Maintenance Due Date Last Done Comments Breast Cancer Screening 1975 DTaP,Tdap,and Td Vaccines (1 - Tdap) 1994 Hepatitis B Vaccines (1 of 3 - 19+ 3-dose series) 1994 Social Influ[employer]ers of Health Screening 05/06/2022 Cervical Cancer Screening: HPV 11/16/2022 11/16/2017 Depression Screening 11/06/2024 03/07/2024 COVID-19 Vaccine (1 - 2023-2 5 season) 2025 Influenza Vaccine (#1) 2025 Colorectal Cancer Screening: Colonoscopy 06/27/2028 06/27/2023 RSV Immunization Adult Patie nts (1 - 1-dose 75+ series) 2050 HIV Screening Completed 12/29/2017 Hepatitis C Screening [...] Procedure Name Priority Date/Time Associated Diagnosis Comments HM HEPATITIS C SCREENING Routine 08/13/2024 DEPRESSION SCREENING Routine 03/07/2024 EXTERNAL COLONOSCOPY REPORT Routine 06/27/2023 4:05 PM EDT HIV SCREENING Routine 12/29/2017 HPV Routine 11/16/2017 from Last 3 Months or Most Recently Relevant to Health Maintenance Results * Hepatitis C Screening (08/13/2024) Pathologist [facility] Hepatitis C Screening abstracted [facility] Provider HEALTH MAINTENANCE Final Result * Depression Screening (03/07/2024) Pathologist [facility] Depression Screening abstracted [facility] Provider HEALTH MAINTENANCE Final Result * External Colonoscopy Report (06/27/2023 4:05 PM EDT) Anatomical Region Laterality Modality Endoscopy [facility] Provider GI~PROCEDURE ORDERABLES F inal Result * HIV Screening (12/29/2017) [facility] HIV Screening abstracted [facility] Provider HEALTH MAINTENANCE Final Result * Cervical Cancer Screening: HPV (11/16/2017) [facility] Cervical Cancer Screening: HPV negative, abstracted [facility] Provider HEALTH MAINTENANCE Final Result from Last 3 Months or Most Recently Relevant to Health Maintenance Insurance [facility] [employer] Care Teams Braddisher Relationship Specialty Start Date End Date Michael Duval MD PCP - General Internal Medicine 05/21/20
== END 2025-08-07 10:38 | disposition home or self-care (01) ==
LOC: HO.HMGCX 10:37
PROVIDERS: PCP Physician Assistant; Visit Provider Physician Assistant
DX: R79.89 Other specified abnormal findings of blood chemistry (principal)
CPT/HCPCS: 76700

== ENCOUNTER → 2025-08-07 10:39 | Outpatient (BNV) | payer OTHER, SELFPAY | PROVIDERS: PCP Physician Assistant; Visit Provider Specialist | DX: K76.0 Fatty (change of) liver, not elsewhere classified (principal) | CPT/HCPCS: 76700 ==

== ENCOUNTER 2025-08-15 07:52 | Outpatient (AMB) | payer OTHER, SELFPAY ==
--- NOTE | 2025-08-15 07:54 | A.OFFVIS_ITS ---
Vital Signs 08/15/25 07:56 Height 5 ft 5 in Weight 170 lb 10.205 oz BMI 28.4 BP 110/72 Blood Pressure Location Rt brachial Position Sitting Pulse 62 Pulse Source Pulse Oximeter Pulse Oximetry (%) 99 Oxygen Delivery Method Room Air Intake Visit Reasons: Thyrotoxicosis with diffuse goiter without Intake Note: New patient present today for Thyrotoxicosis with diffuse goiter without thyrotoxic crisis or storm. Recovery Operator Helper Required: No Accompanied by: Self / Same As Patient Allergies No Known Allergies Allergy (Verified 08/15/25 07:57) Medication List - Last Reconciled 08/15/25 by Jayne Dukes MD methimazole 5 mg PO DAILY tirzepatide (weight loss) (Zepbound) 5 mg (0.5 mL) subcut QWEEK trazodone 50 mg PO BEDTIME HPI Comments Details: 49-year-old female here today for initial evaluation of hyperthyroidism with a history of Graves disease and multinodular goiter. Was previously following with arm rest builder at [place]. Last saw her summer 2023. Has a history of Graves disease, diagnosed: age 28 years, was hospitalized with thyroid storm Currently on methimazole 5 mg BID. increased it herself May 2025. She hasnt been adherent with her therapy intermittently stops taking it when I feel good in 2022 also was not on the medication due to not having insurance. Also has history of MNG. has had biopsies before. thinks she had a biopsy summer 2023. reportedly benign. I dont have these records. Most recent labs from 07/29/2025 showed TSH is suppressed, free T4 is normal at 1.08. Complaining of fatigue, mood swings, joint pains, trouble sleeping, increased diaphoresis damaris at night, brain fog, hair loss. Reports constipation. Intermittent palpitations not too frequently. Has history of anxiety and depression. Reports 30 lbs weight gain over 9805-0425. Postmenopausal since 2022. Tried HRT, had some improvement in symptoms but then lost to followup with Obgyn and had issues with adhesion of the estrogen patch. PCP has placed referral for new Obgyn. Denies vision changes. has seen ophthalmology 2023, no stigmata of eye disease. Patient currently denies heat or cold intolerance, , changes in appearance of eyes or vision changes, tremors, Patient denies any difficulty swallowing, pain on swallowing or voice changes or difficulty breathing. Patient denies any history of childhood neck radiation. Denies having ever used lithium, amiodarone or biotin supplements. Patient denies any family history of thyroid cancer. Great aunt had Graves disease. 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 No smoking Alcohol: 1 drink a week No drug use Father and paternal grandfather : brain cancer No family history of breast cancer Physical exam General: sitting comfortably in no acute distress HEENT: normocephalic/atraumatic Neck: supple, symmetrical, palpable 1 cm right-sided nodule, palpable 1 cm left- sided nodule Cardiac: normal heart sounds Pulm: normal breath sounds B/L, no added breath sounds Abd: not distended, no tenderness Extremities: no edema, no signs of myxedema, no tremors Laboratory Tests 06/04/25 07/14/25 07/29/25 09:34 14:07 10:27 AST 25 ALT 19 TSH < 0.01 L < 0.01 L < 0.01 L Free T4 1.23 1.51 1.08 [facility] Medical History (Updated 08/15/25 @ 08:27 by Jayne Dukes MD) Multinodular goiter (nontoxic) Surgical History No pertinent past surgical history Social History Housing: Apartment Patient Tobacco Use Status: Never used Tobacco e-Cigarette/Vaping Use: Never Used Second Hand Smoke Exposure: No service: No Current occupational status: employed 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 Was previously following with arm rest builder at [place]. Has a history of Graves disease, diagnosed: age 28 years, was hospitalized with thyroid storm Currently on methimazole 5 mg BID. increased it herself May 2025. There has been some periods of non adherence to the medication in between. Most recent labs from 07/29/2025 showed TSH is suppressed, free T4 is normal at 1.08. Likely her TSH is suppressed because of skipping some doses in between. I will have her repeat labs prior to her next follow up. We will also check her antibody levels. I will try to obtain her previous records from [place]. She has a lot of nonspecific symptoms, some of these could be attributed to her going through menopause. I did recommend her to follow up with the OBGYN in consider restarting HRT since she did have improvement in her symptoms prior when she was on it. Discussed with patient that about 30% of the patients have remission after 12-18 months of treatment with methimazole. More recent data has shown longer periods of treatment resulting in better remission rates as well. At this time we will plan to continue treatment with methimazole and continue adjusting the dose as needed. In the long run if she does not have remission, we also briefly discussed definitive therapy options of radioactive iodine ablation and total thyroidectomy and the need for requiring long-term levothyroxine therapy after those procedures. At this point she has been on the medication intermittently for a long period of time. We will see what her labs show but in the next few visits, would definitely address more definite if therapy options. The following were discussed as potential side effects of methimazole: - Serious skin rashes - nausea, vomiting, or severe hepatic injury - Agranulocytosis: a rare side effect of methimazole involves a severe decrease in the production of white blood cells. This condition is extremely serious, but affects only one out of every 200 to 500 people who take an antithyroid drug. Agranulocytosis more commonly occurs within the first three months of starting treatment with an antithyroid drug, but can occur at any time. If patient develops a fever (temperature above 100.5F), or other signs or symptoms of infection, she should stop taking the tapazole and immediately have a complete blood count (CBC) done. Serious and potentially life threatening infections, or even , can occur before agranulocytosis resolves. However, once the antithyroid drug is stopped, agranulocytosis usually resolves within a week. - Arthralgias, myalgias - Renal: Nephritis - Fever Patient will stop medication and call our office if these occur. Plan: -continue methimazole 5 mg b.i.d. -ordered TSH, free T4, total T3, TSH receptor, TSI and TPO antibodies to be done prior to next follow up in 3-4 weeks (2) Multinodular goiter (nontoxic): Code(s): E04.2 - Nontoxic multinodular goiter Category: Medical Plan: She also reportedly has a history of multiple thyroid nodules. According to patient she has had biopsies in the past, which were reportedly benign. We do not have any of these records. We will try to obtain. During her exam I did feel bilateral thyroid nodules. We will obtain an ultrasound of the thyroid. No family history of thyroid cancer, no personal history of head or neck radiation. She does not have any compressive symptoms. Plan: -ordered ultrasound of the thyroid -follow up in 3-4 weeks to discuss results Plan I spent 45 minutes in reviewing the record, seeing the patient and documenting in the medical record. Orders: Orders US thyroid Today E04.2 - Nontoxic multinodular goiter, E05.00 - Thyrotoxicosis with diffuse goiter without thyrotoxic crisis or storm Thyroid Stimulating Hormone 3 Weeks E04.2 - Nontoxic multinodular goiter, E05.00 - Thyrotoxicosis with diffuse goiter without thyrotoxic crisis or storm Free T4 (Free Thyroxine) 3 Weeks E04.2 - Nontoxic multinodular goiter, E05.00 - Thyrotoxicosis with diffuse goiter without thyrotoxic crisis or storm Thyrotropin Receptor Antibody 3 Weeks E04.2 - Nontoxic multinodular goiter, E05.00 - Thyrotoxicosis with diffuse goiter without thyrotoxic crisis or storm Thyroid Stimulating Immunoglob 3 Weeks E04.2 - Nontoxic multinodular goiter, E05.00 - Thyrotoxicosis with diffuse goiter without thyrotoxic crisis or storm Thyroid Peroxidase Antibodies 3 Weeks E04.2 - Nontoxic multinodular goiter, E05.00 - Thyrotoxicosis with diffuse goiter without thyrotoxic crisis or storm Triiodothyronine T3 Total 3 Weeks E04.2 - Nontoxic multinodular goiter, E05.00 - Thyrotoxicosis with diffuse goiter without thyrotoxic crisis or storm Medications: Changed From methimazole 5 mg PO DAILY To methimazole 5 mg PO BID 60 tabs 2RF Coding Level of Care Code New Pt Level 4 (52711) Diagnoses Graves' disease E05.00 Multinodular goiter (nontoxic) E04.2 Time Spent (min) 45
[2025-08-15 07:56] VITALS: BP 110/72; PULSE 62; O2SAT 99; BMI 28.4
== END 2025-08-15 08:41 | disposition home or self-care (01) ==
LOC: HO.ENCR 07:53
PROVIDERS: PCP Physician Assistant; Visit Provider Student in an Organized Health Care Education/Training Program
DX: E05.00 Thyrotoxicosis with diffuse goiter without thyrotoxic crisis or storm (principal); E04.2 Nontoxic multinodular goiter
CPT/HCPCS: 99204

== ENCOUNTER → 2025-08-15 07:52 | Outpatient (BNVA) | payer OTHER, SELFPAY | PROVIDERS: PCP Physician Assistant; Visit Provider Student in an Organized Health Care Education/Training Program | DX: E04.2 Nontoxic multinodular goiter (principal); E05.00 Thyrotoxicosis with diffuse goiter without thyrotoxic crisis or storm | CPT/HCPCS: 99202 ==

== ENCOUNTER 2025-09-24 08:41 | Outpatient (AMB) | payer OTHER, SELFPAY ==
--- NOTE | 2025-09-24 08:47 | A.OFFPC_ITS ---
Vital Signs 09/24/25 08:48 Height 5 ft 5 in Weight 163 lb BMI 27.1 BP 98/72 Blood Pressure Location Rt brachial Position Sitting Respiration 12 Pulse 79 Pulse Source Pulse Oximeter Temp 98.2 F Temp Source Oral Pulse Oximetry (%) 97 Oxygen Delivery Method Room Air Intake Visit Reasons: meds Intake Note: Medication Inside Plant Supervisor Required: No Allergies No Known Allergies Allergy (Verified 09/24/25 08:50) Medication List - Last Reconciled 09/24/25 by Keyanna Valencia PA-C methimazole 5 mg PO BID tirzepatide (weight loss) (Zepbound) 7.5 mg subcut QWEEK trazodone 50 mg PO BEDTIME Tobacco use date assessed: 09/24/25 Dental Screening Dental Screen Date: 06/04/25 HPI meds HPI Details Pt is a 50 year old female who presents today for a follow up. She has a significant past medical history of hyperthyroidism Graves disease, constipation, joint pains, fatigue, and insomnia. Endo: Previously followed with [facility] for grave's disease but recently switch to [facility]. Currently managed on methimazole 5 mg daily. She has been on methimazole for over 20 years. She states now that she is compliant with the methimazole it feels like her Graves disease is doing much better. She is overdue for labs. She has an ultrasound scheduled. Most recent TSH was less than 0.01 GI: Struggles with constipation and she followed with GI. States that she had a colonoscopy which was ?normal ?. Psych: Has been struggling with insomnia since she started with hot flashes and perimenopause. She does not sleep more than a couple hours a night and has frequent, interrupted sleep. She does feel that the trazodone is helpful but it does leave her feeling groggy in the morning. She would like to try something different. 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 She tried taping it on but felt that this was too much. She felt a little bit better with the hormones in terms of her symptoms of menopause like hot flashes, mood changes but did not notice any real change in her weight or quality of sleep. She states that she has struggled with keeping the patch on her that it was hard to to assess full changes in her system. General: Currently using Zepbound through a wellness Center.. She has lost 7 lb. 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 Current occupational exposures/hazards: No Cognitive needs: No Hearing needs: No Vision needs: No Questionnaire Thrive Questionnaire Date Thrive assessed: 06/02/25 I am a: Patient What is your living situation today?: I have a steady place to live Within the past 12 months, did the food you bought not last and you didn't have the money to get more?: Never true Within the past 12 months, did you worry whether your food would run out before you got money to buy more?: Never true Do you have trouble paying for medicines?: No Do you have trouble getting transportation to medical appointments?: No Do you have trouble paying your heating and electricity bill?: No Do you have trouble taking care of your child, family member or friend?: No Do you have trouble with day-to-day activities such as bathing, preparing meals, shopping, managing finances, etc.?: No Are you currently unemployed and looking for a job?: No Are you interested in more education?: I choose not to answer this question Please select the resources that you would like help with: None Currently or been in a relationship where the following occur: No concerns reported THRIVE Score: 0 AUDIT C Alcohol Use Questionnaire (AUDIT-C) 1. How often do you have a drink containing alcohol?: Monthly or less 2. How many drinks containing alcohol do you have on a typical day when you are drinking?: 1 or 2 3. How often do you have six or more drinks on one occasion?: Never Total Score: 1 MACKENZIE-7 AMB Questionnaire MACKENZIE-7 Date MACKENZIE - 7 assessed: 06/04/25 Source: Developed by Drs. Franco Mclain, Aleja Gonzalez, Torin Roth and colleagues, with an educational alfonzo from [employer]. Physical exam (Primary Care) Vital Signs: Last Vital Signs Temp 98.2 F 09/24/25 08:48 Pulse 79 09/24/25 08:48 Resp 12 09/24/25 08:48 BP 98/72 09/24/25 08:48 Pulse Ox 97 09/24/25 08:48 Oxygen Delivery Method Room Air 09/24/25 08:48 BMI result Body Mass Index 27.1 Tobacco/Smoking Status: Tobacco use Status Tobacco use date assessed 09/24/25 09/24/25 08:53 Patient Tobacco Use Status Never used Tobacco 09/24/25 08:53 e-Cigarette/Vaping Use Never Used 09/24/25 08:53 Thrive Assessment: Date of Thrive Assessment Date Thrive assessed 06/02/25 09/24/25 08:53 Currently or been in a relationship where the following occur: No concerns reported Const Orientation/consciousness: patient oriented x3 HENMT Ears: hearing grossly normal bilaterally Neck Lymphatic: no lymphadenopathy noted Resp Auscultation: clear to auscultation bilaterally Cardio Rate: regular rate Rhythm: regular rhythm Heart sounds: S1 normal heart sound present and S2 normal heart sound present GI Inspection: Yes normal to inspection Palpation (GI): Soft to palpation and Other GI palpation findings present (nontender, no cva tenderness) Auscultation: normoactive bowel sounds Rectal Exam - Female: deferred Skin General skin exam: no rashes or lesions noted Neuro General: patient oriented x3, gait normal and no focal motor deficits Coding Level of Care Code Est Pt Level 4 (94250) Complex EM visit Add On G2211 Diagnoses Graves' disease E05.00 Insomnia G47.00 Weight gain R63.5 Assessment & Plan Assessment & Plan (1) Graves' disease: Code(s): E05.00 - Thyrotoxicosis with diffuse goiter without thyrotoxic crisis or storm Category: Medical Plan: Continue follow up with endocrinology Reminded labs and I discussed her appointment time for her thyroid ultrasound on 10/20 (2) Insomnia: Code(s): G47.00 - Insomnia, unspecified Category: Medical Plan: We will try hydroxyzine. Discussed risks and benefits and adverse effects of this medication. (3) Weight gain: Code(s): R63.5 - Abnormal weight gain Category: Medical Plan: Offered to order Zepbound through [facility] as we did review that compound pharmacies do lack some regulation and she will let me know if she wishes to do it this way. Plan Mammogram ordered Orders: Orders MM screening mammo BI Today Z12.31 - Encounter for screening mammogram for malignant neoplasm of breast Medications: New hydroxyzine HCl 25 mg PO BEDTIME 90 tabs 0RF Discontinued trazodone Discontinued Reason: Doctor's Order 50 mg PO BEDTIME 30 tabs 4RF
[2025-09-24 08:48] VITALS: BP 98/72; PULSE 79; RESP 12; TEMP 36.8; O2SAT 97; BMI 27.1
--- OUTSIDE RECORDS SUMMARY | 2025-09-24 16:22 | XMS_ITS | Clinical Summary ---
Author Organization Patient Business Ser [facility] Address [address] [place] [address] Care Team Providers Care Metal Filer Name Role Phone Michael Duval MD Primary Care Provider [phone] Allergies No known active allergies Medications linaCLOtide [...] AM EST Office Visit Adult Medicine [facility] [address] [place] [phone] Michael Duval MD [address] [place] [phone] Health Maintenance Due Date Last Done Comments Breast Cancer Screening 1975 DTaP,Tdap,and Td Vaccines (1 - Tdap) 1994 Hepatitis B Vaccines (1 of 3 - 19+ 3-dose series) 1994 Social Influencers of Health Screening 05/06/2022 Cervical Cancer Screening: HPV 11/16/2022 11/16/2017 Depression Screening 11/06/2024 03/07/2024 COVID-19 Vaccine (1 - 2024-2 6 season) 2025 Influenza Vaccine (#1) 2025 Pneumococcal Vaccine: 50+ Ye ars (1 of 1 - PCV) 2025 Zoster Vaccines (1 of 2) 2025 Colorectal Cancer Screening: Colonoscopy 06/27/2028 06/27/2023 [...] Results * Hepatitis C Screening (08/13/2024) Pathologist [facility] Hepatitis C Screening abstracted [facility] Provider HEALTH MAINTENANCE Final Result * Depression Screening (03/07/2024) [facility] Depression Screening abstracted [facility] Provider HEALTH MAINTENANCE Final Result * External Colonoscopy Report (06/27/2023 4:05 PM EDT) Anatomical Region Laterality Modality Endoscopy [facility] Provider GI~PROCEDURE ORDERABLES F inal Result * HIV Screening (12/29/2017) [facility] HIV Screening abstracted [facility] Provider HEALTH MAINTENANCE Final Result * Cervical Cancer Screening: HPV (11/16/2017) [facility] Cervical Cancer Screening: HPV negative, abstracted [facility] Provider HEALTH MAINTENANCE Final Result from Last 3 Months or Most Recently Relevant to Health Maintenance Insurance [employer] Care Teams Metal Filer Relationship Specialty Start Date End Date Michael Duval MD PCP - General Internal Medicine 05/21/20
== END 2025-09-24 09:34 | disposition home or self-care (01) ==
LOC: HO.HMCFM 08:41
PROVIDERS: PCP Physician Assistant; Visit Provider Physician Assistant
DX: E05.00 Thyrotoxicosis with diffuse goiter without thyrotoxic crisis or storm (principal); G47.00 Insomnia, unspecified; R63.5 Abnormal weight gain

== ENCOUNTER 2025-09-24 08:41 | Outpatient (REF) | payer OTHER, SELFPAY ==
[2025-09-24 13:39] LABS: Free T4 (Free Thyroxine) 1.04 ng/dL (0.71-1.85); Thyroid Stimulating Hormone < 0.01 uIU/mL (0.32-4.0)
== END 2025-09-24 08:42 | disposition home or self-care (01) ==
LOC: HO.WFDLDS 08:41
PROVIDERS: Student in an Organized Health Care Education/Training Program; PCP Physician Assistant; Visit Provider Physician Assistant
DX: E05.00 Thyrotoxicosis with diffuse goiter without thyrotoxic crisis or storm (principal); E04.2 Nontoxic multinodular goiter; G47.00 Insomnia, unspecified; R63.5 Abnormal weight gain; Z79.899 Other long term (current) drug therapy
CPT/HCPCS: 36415; 83520; 84439; 84443; 84445; 84480; 86376; 99212

== ENCOUNTER 2025-10-20 14:26 | Outpatient (REF) | payer OTHER, SELFPAY ==
--- NOTE | ~2025-10-20 | US_ITS ---
EXAMINATION: US THYROID CLINICAL INFORMATION: Graves' disease. Thyrotoxicosis with diffuse goiter. Multiple nodules. Prior study at another facility. Prior biopsy also at other facility, benign by history. COMPARISON: None available. TECHNIQUE: Linear transducer grayscale and color Doppler examination with attention to the region of the thyroid. FINDINGS: SIZE: Measurements of the thyroid lobes and nodules are given in sagittal, anteroposterior and transverse dimensions respectively. Right Thyroid Lobe: 5.8 x 2.3 x 1.4 cm, volume 10.0 mL. Parenchyma: The gland echotexture is heterogeneous. Thyroid vascularity is increased. Left Thyroid Lobe: 5.5 x 2.5 x 2.6 cm, volume 18.9 mL. (Enlarged) Parenchyma: The gland echotexture is heterogeneous. Thyroid vascularity is increased. Isthmus: 0.24 cm in maximum AP dimension. Estimated total number of nodules greater than or equal to 1 cm: 5. Ground Intelligence Officer nodules are described as follows: 1. Location: Right upper pole. Size: 1.4 x 0.8 x 0.9 cm, volume 0.55 mL. Nodule characteristics: Composition: Solid/almost completely solid (2). Echogenicity: Hypoechoic (2). Shape: Not taller than wide (0). Margins: Smooth (0). Echogenic Foci: Punctate echogenic foci (3). ACR TI-RADS total points: 7 ACR TI-RADS category: 5 2. Location: Right mid pole. Size: 1.2 x 0.8 x 0.7 cm, volume 0.35 mL. Nodule characteristics: Composition: Solid (2). Echogenicity: Hypoechoic (2). Shape: Taller than wide (3). Margins: Smooth (0). Echogenic Foci: Punctate echogenic foci (3). ACR TI-RADS total points: 10 ACR TI-RADS category: 5 3. Location: Right mid pole. Size: 1.0 x 0.4 x 0.8 cm, volume 0.20 mL. Nodule characteristics: Composition: Solid (2). Echogenicity: Very hypoechoic (3). Shape: Not taller than wide (0). Margins: Smooth (0). Echogenic Foci: None (0). ACR TI-RADS total points: 5 ACR TI-RADS category: 4 4. Location: Right lower pole. Size: 1.4 0.85 x 0.80 cm, volume 0.50 mL. Nodule characteristics: Composition: Solid/almost completely solid (2). Echogenicity: Hypoechoic (2). Shape: Taller than wide (3). Margins: Smooth (0). Echogenic Foci: None (0). ACR TI-RADS total points: 7 ACR TI-RADS category: 5 5. Location: Left Mid to lower pole. Size: 4.0 x 2.0 x 2.3 cm, volume 10.0 mL. Nodule characteristics: Composition: Solid (2). Echogenicity: Hypoechoic (2). Shape: Not taller than wide (0). Margins: Smooth (0). Echogenic Foci: Punctate echogenic foci (3). ACR TI-RADS total points: 7 ACR TI-RADS category: 5 NODES: No lymphadenopathy is seen in the tissue surrounding the thyroid gland. US/US thyroid IMPRESSION: 1. There is a 1.4 cm TR category 5 nodule in the right upper pole. FNA advised if not already performed. 2. There is a 1.2 cm TR category 5 nodule in the right mid pole. FNA advised if not already performed. 3. There is a 1.0 cm right pole TR category 4 nodule. Follow-up recommended as detailed below. 4. There is a 1.4 cm TR category 5 nodule in the right lower pole. FNA advised if not already performed. 5. There is a 4.0 cm TR category 5 nodule in the left mid to lower pole. FNA advised if not already performed. 6. The surrounding thyroid parenchyma is hyperemic and heterogeneous in keeping with thyroiditis. --- ACR TI-RADS RECOMMENDATION REFERENCE: Ultrasound-guided fine-needle aspiration, followup ultrasound, no further follow up. * TR1 (0 point) and TR2 (2 points): No FNA or follow up. * TR3 (3 points): FNA if more than or equal to 2.5 cm in maximum dimension, followup ultrasound in 1, 3 and 5 years if 1.5 to 2.4 cm in maximum dimension. * TR4 (4-6 points): FNA if more than or equal to 1.5 cm in maximum dimension, followup ultrasound in 1, 2, 3 and 5 years if 1 to 1.4 cm in maximum dimension. * TR5 (more than or equal to 7 points): FNA if more than or equal to 1 cm in maximum dimension, followup ultrasound every year for 5 years if 0.5 to 0.9 cm in maximum dimension. * TR3, TR4 or TR5 nodules that are below the size threshold for followup receive no follow up. Electronically signed by: Kb Greenberg MD 10/20/2025 04:27 PM RILEY ZIMMERMAN
--- OUTSIDE RECORDS SUMMARY | 2025-10-20 20:48 | XMS_ITS | Clinical Summary ---
Author Organization Patient Business Ser [facility] Address [address] [place] [address] Care Team Providers Care Outside Salesperson Name Role Phone Michael Duval MD Primary Care Provider [phone] Allergies No known active allergies Medications linaCLOtide [...] the meantime to bring with her. Seizures 06/26/2015 Overview (10/22/2024): Follows with neurology ([facility]) [...] on file Sexual Orientation Not on file Last Filed Vital Signs Vital Sign Reading [...] 03/18/2025 10:48 AM EDT Plan of Treatment Health Maintenance Due Date Last Done Comments [...] Maintenance Results * Hepatitis C Screening (08/13/2024) [facility] Hepatitis C Screening abstracted Historical Provider HEALTH MAINTENANCE Final Result * Depression Screening (03/07/2024) Pathologist [facility] Depression Screening abstracted Historical Provider HEALTH MAINTENANCE Final Result * External Colonoscopy Report (06/27/2023 4:05 PM EDT) Anatomical Region Laterality Modality Endoscopy Historical Provider GI~PROCEDURE ORDERABLES F inal Result * HIV Screening (12/29/2017) [facility] HIV Screening abstracted Historical Provider HEALTH MAINTENANCE Final Result * Cervical Cancer Screening: HPV (11/16/2017) Pathologist [facility] Cervical Cancer Screening: HPV negative, abstracted Historical Provider HEALTH MAINTENANCE Final Result from Last 3 Months or Most Recently Relevant to Health Maintenance Insurance [facility] [employer] Care Teams Outside Salesperson Relationship Specialty Start Date End Date Michael Duval MD PCP - General Internal Medicine 05/21/20
== END 2025-10-20 14:27 | disposition home or self-care (01) ==
LOC: HO.HMGCX 14:26
PROVIDERS: PCP Physician Assistant; Visit Provider Student in an Organized Health Care Education/Training Program
DX: E05.00 Thyrotoxicosis with diffuse goiter without thyrotoxic crisis or storm (principal); E04.2 Nontoxic multinodular goiter
CPT/HCPCS: 76536

== ENCOUNTER → 2025-10-20 14:29 | Outpatient (BNV) | payer OTHER, SELFPAY | PROVIDERS: PCP Physician Assistant; Visit Provider Radiology Diagnostic Radiology | DX: E05.00 Thyrotoxicosis with diffuse goiter without thyrotoxic crisis or storm (principal); E04.2 Nontoxic multinodular goiter | CPT/HCPCS: 76536 ==